=== PATIENT | male | born 1950 | race Caucasian/White ===

== ENCOUNTER 2017-05-02 20:36 | Emergency (ER) | payer OTHER ==
[2017-05-02 22:00] LABS: BASOPHILS 0 % (0-2); EOSINOPHILS 0 % (0-7); HEMOGLOBIN 15.6 g/dL (13.5-17.5); IMMATURE GRANULOCYTES 0.2 % (0-5); LYMPHOCYTES 10.9 % (15-50); MCH 30.8 pg (26.0-34.0); MCHC 33.2 g/dL (31.0-37.0); MCV 92.9 fL (80.0-100.0); MEAN PLATELET VOLUME 9.6 fL (7.4-10.4); MONOCYTES 11.1 % (2-11); NEUTROPHILS 77.8 % (40-80); PLATELET COUNT 155 10x3/uL (130-400); RBC 5.06 10x6/uL (4.20-6.10); RDW 15.2 % (11.5-14.5); WBC 5.6 10x3/uL (4.8-10.8)
[2017-05-02 22:07] LABS: ALBUMIN 3.3 g/dL (3.4-5.0); ALKALINE PHOSPHATASE 68 U/L (46-116); ALT (SGPT) 32 U/L (10-68); BILIRUBIN - TOTAL 0.43 mg/dL (0.2-1.3); CALC OSMOLALITY 277 mosm/kg (275-300); CARBON DIOXIDE 29.7 mmol/L (21.0-32.0); CHLORIDE - SERUM 100 mmol/L (98-107); CREATININE - SERUM 1.3 mg/dL (0.6-1.3); GLUCOSE 120 mg/dL (74-106); POTASSIUM - SERUM 4.1 mmol/L (3.5-5.1); PROTEIN - SERUM 7.5 g/dL (6.4-8.2); SODIUM 138 mmol/L (136-145); UREA NITROGEN 15 mg/dL (7-18); eGFR NON AFRICAN AMERICAN 59 mL/min (90-120)
[2017-05-02 22:16] LABS: CREATINE KINASE 200 UL (21-232); MAGNESIUM - SERUM 2.2 mg/dL (1.8-2.4); PRO BNP 287 pg/mL (0-125)
[2017-05-02 22:17] LABS: TROPONIN-I < 0.017 ng/mL (0.000-0.060)
[2017-05-02 22:27] LABS: INR 1.08 (0.85-1.17); PROTIME 13.6 SECONDS (11.6-15.0)
[2017-05-02 23:45] LABS: APPEARANCE CLEAR (CLEAR); BILIRUBIN NEGATIVE (NEGATIVE); COLOR YELLOW (YELLOW); GLUCOSE NEGATIVE (NEGATIVE); KETONE NEGATIVE (NEGATIVE); NITRITE NEGATIVE (NEGATIVE); PROTEIN NEGATIVE (NEGATIVE); SPECIFIC GRAVITY 1.015 (1.005-1.020); UROBILINOGEN NORMAL (NORMAL)
== END 2017-05-03 01:43 | disposition home or self-care (01) ==
LOC: D.ER 20:36
PROVIDERS: Emergency Medicine; Nurse Practitioner Family
DX: J18.9 Pneumonia, unspecified organism (principal); J11.1 Influenza due to unidentified influenza virus with other respiratory manifestations; R53.1 Weakness; R14.0 Abdominal distension (gaseous); I10 Essential (primary) hypertension; J44.9 Chronic obstructive pulmonary disease, unspecified

== ENCOUNTER 2017-07-21 15:19 | Emergency (ER) | payer OTHER ==
[2017-07-21 16:23] LABS: BASOPHILS 0 % (0-2); EOSINOPHILS 0.4 % (0-7); HEMOGLOBIN 16.3 g/dL (13.5-17.5); LYMPHOCYTES 12.3 % (15-50); MCH 30.6 pg (26.0-34.0); MCV 90.1 fL (80.0-100.0); MEAN PLATELET VOLUME 10.6 fL (7.4-10.4); NEUTROPHILS 76.3 % (40-80); PLATELET COUNT 140 10x3/uL (130-400); RBC 5.33 10x6/uL (4.20-6.10); RDW 14.3 % (11.5-14.5); WBC 5.5 10x3/uL (4.8-10.8)
[2017-07-21 16:40] LABS: ANION GAP 9.8 mmol/L (8-16); BILIRUBIN - TOTAL 0.45 mg/dL (0.2-1.3); CALCIUM 8.6 mg/dL (8.5-10.1); CREATININE - SERUM 1.3 mg/dL (0.6-1.3); POTASSIUM - SERUM 3.8 mmol/L (3.5-5.1)
[2017-07-21 17:14] LABS: APPEARANCE CLEAR (CLEAR); BILIRUBIN NEGATIVE (NEGATIVE); COLOR YELLOW (YELLOW); GLUCOSE NEGATIVE (NEGATIVE); KETONE NEGATIVE (NEGATIVE); NITRITE NEGATIVE (NEGATIVE); PROTEIN NEGATIVE (NEGATIVE); SPECIFIC GRAVITY 1.015 (1.005-1.020); UROBILINOGEN NORMAL (NORMAL)
[2017-07-21 17:23] LABS: PRO BNP 220 pg/mL (0-125)
[2017-07-21 17:30] LABS: TROPONIN-I < 0.017 ng/mL (0.000-0.060)
== END 2017-07-21 21:07 | disposition short-term general hospital (02) ==
LOC: D.ER 15:19
PROVIDERS: Emergency Medicine
DX: R06.00 Dyspnea, unspecified (principal); J18.9 Pneumonia, unspecified organism; J44.9 Chronic obstructive pulmonary disease, unspecified; I10 Essential (primary) hypertension; I25.10 Atherosclerotic heart disease of native coronary artery without angina pectoris; M06.9 Rheumatoid arthritis, unspecified

== ENCOUNTER 2017-12-11 16:03 | Emergency (ER) | payer OTHER ==
[~2017-12-11] VITALS: Ht 185.4 cm; Wt 103.2 kg
[2017-12-11 16:08] VITALS: Ht 185.4 cm; Wt 103.2 kg
[2017-12-11] MEDS ORDERED: ULTRAM50 MG PO (16:10)
[2017-12-11] MEDS ORDERED: ZANAFLEX6 MG PO (16:10)
[2017-12-11] MEDS ORDERED: VALIUM5 MG PO (16:11)
[2017-12-11] MEDS ORDERED: COREG25 MG PO (16:13)
[2017-12-11 16:44] LABS: BASOPHILS 0.1 % (0-2); EOSINOPHILS 3.6 % (0-7); HEMATOCRIT 49.3 % (42.0-54.0); HEMOGLOBIN 16.7 g/dL (13.5-17.5); IMMATURE GRANULOCYTES 0.2 % (0-5); LYMPHOCYTES 8.7 % (15-50); MCH 30.3 pg (26.0-34.0); MCHC 33.9 g/dL (31.0-37.0); MCV 89.5 fL (80.0-100.0); MEAN PLATELET VOLUME 9.8 fL (7.4-10.4); MONOCYTES 10.9 % (2-11); NEUTROPHILS 76.5 % (40-80); PLATELET COUNT 130 10x3/uL (130-400); RBC 5.51 10x6/uL (4.20-6.10); RDW 15.1 % (11.5-14.5); WBC 14.6 10x3/uL (4.8-10.8)
[2017-12-11 16:49] LABS: APPEARANCE CLEAR (CLEAR); BILIRUBIN NEGATIVE (NEGATIVE); COLOR YELLOW (YELLOW); GLUCOSE NEGATIVE (NEGATIVE); KETONE NEGATIVE (NEGATIVE); NITRITE NEGATIVE (NEGATIVE); PROTEIN TRACE mg/dL (NEGATIVE); SPECIFIC GRAVITY 1.005 (1.005-1.020); UROBILINOGEN NORMAL (NORMAL)
[2017-12-11 16:57] LABS: ALBUMIN 3.8 g/dL (3.4-5.0); ALKALINE PHOSPHATASE 83 U/L (46-116); ALT (SGPT) 24 U/L (10-68); BILIRUBIN - TOTAL 0.47 mg/dL (0.2-1.3); CALC OSMOLALITY 268 mosm/kg (275-300); CALCIUM 8.4 mg/dL (8.5-10.1); CARBON DIOXIDE 30.6 mmol/L (21.0-32.0); CHLORIDE - SERUM 95 mmol/L (98-107); CREATININE - SERUM 1.3 mg/dL (0.6-1.3); GLUCOSE 97 mg/dL (74-106); SODIUM 135 mmol/L (136-145); UREA NITROGEN 10 mg/dL (7-18); eGFR NON AFRICAN AMERICAN 59 mL/min (90-120)
[2017-12-11 17:09] LABS: CKMB 3.8 U/L (0.0-3.6); CREATINE KINASE 453 UL (21-232); PRO BNP 132 pg/mL (0-125); TROPONIN-I < 0.017 ng/mL (0.000-0.060)
[2017-12-12 01:42] VITALS: BP 142/74
== END 2017-12-12 01:45 | disposition other institution (70) ==
LOC: D.ER 16:03
PROVIDERS: Family Medicine
DX: J18.9 Pneumonia, unspecified organism (principal); R05 Cough; I50.9 Heart failure, unspecified; J44.9 Chronic obstructive pulmonary disease, unspecified; K21.9 Gastro-esophageal reflux disease without esophagitis; R00.0 Tachycardia, unspecified

== ENCOUNTER 2019-10-03 18:55 | Emergency (ER) | payer OTHER ==
[~2019-10-03] VITALS: Ht 185.4 cm; Wt 98.6 kg
[~2019-10-03 18:55] MED LIST: COREG25 MG PO; ULTRAM50 MG PO; VALIUM5 MG PO; ZANAFLEX6 MG PO
[2019-10-03 19:15] VITALS: Ht 185.4 cm; Wt 98.6 kg
[2019-10-03] MEDS ORDERED: HYDROCODON-ACE1 EA10 PO (20:46)
[2019-10-03 21:29] VITALS: BP 129/88
== END 2019-10-03 21:01 | disposition home or self-care (01) ==
LOC: D.ER 18:55
DX: S62.112A Displaced fracture of triquetrum [cuneiform] bone, left wrist, initial encounter for closed fracture (principal); J44.9 Chronic obstructive pulmonary disease, unspecified; I50.9 Heart failure, unspecified; I25.2 Old myocardial infarction; K21.9 Gastro-esophageal reflux disease without esophagitis; W19.XXXA Unspecified fall, initial encounter; Y93.9 Activity, unspecified; Y92.9 Unspecified place or not applicable